=== PATIENT | female | born 1940 ===

== ENCOUNTER 2023-02-02 14:49 | Emergency (ER) | payer MEDICARE ==
[2023-02-02 15:49] LABS: BASOPHILS ABSOLUTE AUTO 0.01 K/uL (0.02-0.10); BASOPHILS PERCENT AUTO 0.2 % (0.0-0.5); EOSINOPHILS ABSOLUTE AUTO 0.17 K/uL (0.04-0.40); EOSINOPHILS PERCENT AUTO 2.9 % (1.0-5.0); LYMPHOCYTES PERCENT AUTO 25.4 % (20.0-40.0); MEAN CORPUSCULAR HEMOGLOBIN 28.9 pg (27.0-32.0); MEAN CORPUSCULAR HGB CONC 34.1 g/dL (31.0-35.0); MEAN CORPUSCULAR VOLUME 85 fL (76-96); MEAN PLATELET VOLUME 11.8 fL (6.0-10.0); MONOCYTES ABSOLUTE AUTO 0.57 K/uL (0.20-0.80); MONOCYTES PERCENT AUTO 9.6 % (3.0-10.0); NEUTROPHILS ABSOLUTE AUTO 3.66 K/uL (2.00-7.50); NEUTROPHILS PERCENT AUTO 61.9 % (45.0-70.0); PLATELET COUNT,PLT 225 K/uL (150-500); RED BLOOD CELL COUNT 4.85 M/uL (3.80-5.80); RED CELL DISTRIBUTION WIDTH 13.4 % (11.0-16.0); WHITE BLOOD CELL COUNT,WBC 5.9 K/uL (4.0-11.0)
[2023-02-02 16:17] LABS: INR 0.9 (1.0-3.5); PTT,PARTIAL THROMBOPLSTIN TIME 25.6 SECONDS (24.4-33.2)
[2023-02-02 16:24] LABS: PROTHROMBIN TIME 9.3 sec (9.0-11.5)
[2023-02-02] MEDS ORDERED: Doxycycline 100 MG Cap ONE (17:00)
== END 2023-02-02 17:24 | disposition home or self-care (01) ==
LOC: LB.ED 14:49
DX: R21 Rash and other nonspecific skin eruption (principal); I10 Essential (primary) hypertension; E03.9 Hypothyroidism, unspecified; Z88.8 Allergy status to other drugs, medicaments and biological substances; Z79.82 Long term (current) use of aspirin; Z79.899 Other long term (current) drug therapy
CPT/HCPCS: 36415; 85025; 85379; 85610; 85730; 86140; 86618; 99283; A9270-GY